=== PATIENT | female | born 1950 | race Two or more races ===

== ENCOUNTER → 2024-08-09 | Emergency (ER) | payer OTHER ==
[~2024-08-09] VITALS: Ht 157.5 cm; Wt 47.2 kg
[~2024-08-09] MED LIST: HYDR-4209 PO; HYDROCODONE/APAP 5-325MG TABLET PO ONE; MORPHINE SULFATE 4 MG/1 ML DISP.SYRIN ONE
[2024-08-09] MEDS: MORPHINE SULFATE 4 MG/1 ML DISP.SYRIN IM ONE (23:06)
[2024-08-10 01:39] VITALS: BP 186/84; TEMP 97.9; O2SAT 98
== END | disposition home or self-care (01) ==
LOC: ER 21:38
DX: M17.0 Bilateral primary osteoarthritis of knee (principal); R03.0 Elevated blood-pressure reading, without diagnosis of hypertension; E11.9 Type 2 diabetes mellitus without complications; E78.5 Hyperlipidemia, unspecified; I11.9 Hypertensive heart disease without heart failure; Z85.048 Personal history of other malignant neoplasm of rectum, rectosigmoid junction, and anus; Z92.3 Personal history of irradiation; M79.604 Pain in right leg; M79.605 Pain in left leg
CPT/HCPCS: 99285; 73700; 96372; J2270; A4606; A4663